=== PATIENT | female | born 1970 | race Two or more races ===

== ENCOUNTER 2022-07-01 08:02 | Outpatient (REF) | payer OTHER, SELFPAY | END 2022-07-01 08:03 | disposition home or self-care (01) | LOC: HO.HOSX 08:02 | PROVIDERS: Visit Provider Physician Assistant | DX: Z13.89 Encounter for screening for other disorder (principal) ==

== ENCOUNTER 2022-07-09 16:40 | Outpatient (REF) | payer OTHER, MEDICAID, SELFPAY ==
--- NOTE | ~2022-07-09 | XR_ITS ---
EXAMINATION: XR KNEE UPRIGHT, BILATERAL XR KNEE PATELLA AND LATERAL VIEW, RIGHT CLINICAL INFORMATION: Pain in the knee. COMPARISON: None TECHNIQUE: AP upright views of both knees. Patella and lateral view of the right knee. FINDINGS: RIGHT KNEE: The medial and lateral compartments are normal. There is slight heterogeneity to the density of the patella with slight increased sclerosis. Question normal variation or related to old fracture/trauma. Patellofemoral joint otherwise unremarkable. No effusion. LEFT KNEE LIMITED: Medial and lateral compartments normal. XR/XR knee standing BI IMPRESSION: Right knee: No acute abnormality. Question old fracture/trauma of the patella versus normal variation. Left knee Limited: Normal.
--- NOTE | ~2022-07-09 | XR_ITS ---
EXAMINATION: XR KNEE UPRIGHT, BILATERAL XR KNEE PATELLA AND LATERAL VIEW, RIGHT CLINICAL INFORMATION: Pain in the knee. COMPARISON: None TECHNIQUE: AP upright views of both knees. Patella and lateral view of the right knee. FINDINGS: RIGHT KNEE: The medial and lateral compartments are normal. There is slight heterogeneity to the density of the patella with slight increased sclerosis. Question normal variation or related to old fracture/trauma. Patellofemoral joint otherwise unremarkable. No effusion. LEFT KNEE LIMITED: Medial and lateral compartments normal. XR/XR knee RT 2V IMPRESSION: Right knee: No acute abnormality. Question old fracture/trauma of the patella versus normal variation. Left knee Limited: Normal.
== END 2022-07-09 16:41 | disposition home or self-care (01) ==
LOC: HO.HOSX 16:40
PROVIDERS: Visit Provider Orthopaedic Surgery
DX: M25.561 Pain in right knee (principal); Z98.890 Other specified postprocedural states; G90.50 Complex regional pain syndrome I, unspecified
CPT/HCPCS: 73560; 73565; 99202

== ENCOUNTER → 2022-08-04 13:22 | Outpatient (BNVA) | payer OTHER, MEDICAID, SELFPAY | PROVIDERS: Visit Provider Nurse Practitioner Family | DX: G90.50 Complex regional pain syndrome I, unspecified (principal); M25.561 Pain in right knee; Z98.890 Other specified postprocedural states | CPT/HCPCS: 99202 ==

== ENCOUNTER → 2022-10-23 09:05 | Outpatient (BNVA) | payer OTHER, MEDICAID, SELFPAY | PROVIDERS: Visit Provider Nurse Practitioner Family | DX: Z13.89 Encounter for screening for other disorder (principal) ==